=== PATIENT | female | born 1985 | race Caucasian/White ===

== ENCOUNTER 2021-09-21 10:51 | Emergency (ER) | payer MEDICARE, MEDICAID ==
[2021-09-21] MEDS ORDERED: diphenhydrAMINE 50 MG/ML VIAL ONE (12:56)
[2021-09-21] MEDS ORDERED: Metoclopramide HCl 10 MG/2 ML VIAL ONE (12:56)
[2021-09-22 19:26] LABS: SARS-CoV-2 PCR by NAA Not Detected (NotDetected)
== END 2021-09-21 14:03 | disposition home or self-care (01) ==
LOC: CSHERS 10:51
DX: R51.9 Headache, unspecified (principal); R05.9 Cough, unspecified; R43.9 Unspecified disturbances of smell and taste; Z68.45 Body mass index [BMI] 70 or greater, adult; Z20.822 Contact with and (suspected) exposure to COVID-19; E66.01 Morbid (severe) obesity due to excess calories; Z87.442 Personal history of urinary calculi
CPT/HCPCS: 71045; 96372; 99284; U0003; U0005; J1200; J2765